=== PATIENT | male | born 1965 | race Caucasian/White ===

== ENCOUNTER 2021-01-24 09:29 | Day surgery (SDC) | payer BC ==
[2021-01-24] MEDS ORDERED: propofoL 200 MG/20 ML VIAL IV ONE ×3 (10:41→11:26)
[2021-01-24] MEDS ORDERED: LIDOCAINE 1% MPF 5 ML VIAL ONE (10:41)
--- NOTE | 2021-01-24 11:13 | ENDO RPT ---
[address], [address] EGD PROCEDURE REPORT EXAM DATE: 01/24/2021 PATIENT NAME: Epi Macias MR#: [id number] BIRTHDATE: 1965 ATTENDING: Joshua Carpenter DR STATUS: outpatient BAG PRESSER: Kellen Duvall and Shweta Hughes RN INDICATIONS: The patient is a 55 yr old Male here for an EGD due to GERD PROCEDURE PERFORMED: EGD with biopsy for H. pylori MEDICATIONS: Per Anesthesia. TOPICAL ANESTHETIC: none CONSENT: The patient understands the risks and benefits of the procedure and understands that these risks include, but are not limited to: sedation, allergic reaction, infection, perforation and/or bleeding. Alternative means of evaluation and treatment include, among others: physical exam, x-rays, and/or surgical intervention. The patient elects to proceed with this endoscopic procedure. DESCRIPTION OF PROCEDURE: During intra-op preparation period all mechanical medical equipment was checked for proper function. Hand hygiene and appropriate measures for infection prevention was taken. Procedure, possible complications, and alternatives including but not limited to the possibility of bleeding, perforation, tear, infection, sepsis, need for surgery, need for blood transfusion, and anesthesia related complications were explained to the patient. After the risks, benefits and alternatives of the procedure were thoroughly explained, Informed consent was verified, confirmed and timeout was successfully executed by the treatment team. The patient was placed in the left lateral position. The patient was anesthetized with topical anesthesia. Through the anesthetized oropharyngeal area, the scope was passed without any difficulty. The EG-[id number] ([id number]) endoscope was introduced through the mouth and advanced to the second portion of the duodenum. Retroflexed views revealed no abnormalities. The gastroscope was then slowly withdrawn and removed. Multiple erosions were found in the gastroesophageal junction. Located 39 cm from the point of entry. Multiple biopsies were obtained and sent to pathology. Mild gastritis was found at the pylorus. A biopsy for H. pylori was taken. Duodenitis was found in the bulb and descending duodenum. A biopsy for H. pylori was taken. Polyp was snared, then cauterized with monopolar cautery. Polyp was retrieved and sent to pathology. ADVERSE EVENTS: There were no complications. IMPRESSIONS: 1. Multiple erosions were found in the gastroesophageal junction 2. Mild gastritis was found at the pylorus 3. Duodenitis was found in the bulb and descending duodenum RECOMMENDATIONS: 1. acid suppression therapy 2. anti-reflux regimen 3. await biopsy results 4. avoid NSAIDS 5. follow-up: office 2 week(s) 6. follow-up of helicobacter pylori status, treat if indicated REPEAT EXAM: Jsohua Carpenter DR eSigned: Joshua Carpenter DR 01/24/2021 11:12 AM cc: CPT CODES: ICD9 CODES: PATIENT NAME: Epi Macias MR#: [id number]
--- NOTE | 2021-01-24 11:17 | ENDO RPT ---
[address], [address] COLONOSCOPY PROCEDURE REPORT EXAM DATE: 01/24/2021 PATIENT NAME: Epi Macias MR #: [id number] BIRTHDATE: 1965 ATTENDING: Joshua Carpenter DR STATUS: outpatient [employer] MANAGER: Shweta Hughes RN and Kellen Duvall INDICATIONS: The patient is a 55 yr old Male here for a colonoscopy due to colon cancer screening PROCEDURE PERFORMED: Colonoscopy with biopsy - cold polypectomy MEDICATIONS: Per Anesthesia. ESTIMATED BLOOD LOSS: None CONSENT: The patient understands the risks and benefits of the procedure and understands that these risks include, but are not limited to: sedation, allergic reaction, infection, perforation and/or bleeding. Alternative means of evaluation and treatment include, among others: physical exam, x-rays, and/or surgical intervention. The patient elects to proceed with this endoscopic procedure. DESCRIPTION OF PROCEDURE: During intra-op preparation period all mechanical medical equipment was checked for proper function. Hand hygiene and appropriate measures for infection prevention was taken. Procedure, possible complications, alternatives including, but not limited to possibility of bleeding, perforation, tear, infection, sepsis, need for surgery, need for blood transfusion, were explained to the patient. After the risks, benefits and alternatives of the procedure were thoroughly explained, Informed consent was verified, confirmed and timeout was successfully executed by the treatment team. The patient was placed in the left lateral position. A digital rectal exam was performed and revealed internal hemorrhoids. After appropriate level of anesthesia, the scope was passed. The [id number] ([id number]) endoscope was introduced through the anus and advanced to the cecum, which was identified by both the appendix and ileocecal valve. The quality of the prep was fair. The instrument was then slowly withdrawn as the colon was fully examined. Scope withdrawal time was 10 minutes. COLON FINDINGS: A few small smooth and polypoid shaped pedunculated polyps were found in the ascending colon and sigmoid colon. A polypectomy was performed with cold forceps. The resection was complete, the polyp tissue was completely retrieved and sent to histology. Mild diverticulosis was noted in the sigmoid colon. No bleeding was noted from the diverticulosis. Small internal hemorrhoids were found. Retroflexed views revealed no abnormalities. The scope was then completely withdrawn from the patient and the procedure terminated. ADVERSE EVENTS: There were no complications. IMPRESSIONS: 1. Few small pedunculated polyps were found in the ascending colon and sigmoid colon; polypectomy was performed with cold forceps 2. Mild diverticulosis was noted in the sigmoid colon 3. Small internal hemorrhoids RECOMMENDATIONS: 1. await biopsy results 2. avoid NSAIDS for 2 weeks 3. follow-up: office 2 week(s) 4. Monitor for any evidence of rectal bleeding. 5. hemorrhoidal hygiene 6. increase dietary water RECALL: for Colonoscopy, pending biopsy results. Joshua Carpenter DR eSigned: Joshua Carpenter DR 01/24/2021 11:16 AM cc: CPT CODES: ICD9 CODES: PATIENT NAME: Epi Macias MR#: [id number]
[2021-01-24] MEDS ORDERED: Ringers Lactate 1,000 ML IV ONE (11:27)
[2021-01-24 12:00] VITALS: BP 116/84; TEMP 97; O2SAT 98
== END 2021-01-24 11:50 | disposition home or self-care (01) ==
LOC: OR 09:29
PROVIDERS: ATTEND Surgery
PROC: 0DB98ZX Excision of Duodenum, Via Natural or Artificial Opening Endoscopic, Diagnostic (ICD-10-PCS; 2021-01-24)
PROC: 0DB68ZX Excision of Stomach, Via Natural or Artificial Opening Endoscopic, Diagnostic (ICD-10-PCS; 2021-01-24)
PROC: 0DB48ZX Excision of Esophagogastric Junction, Via Natural or Artificial Opening Endoscopic, Diagnostic (ICD-10-PCS; 2021-01-24)
PROC: 0DBK8ZX Excision of Ascending Colon, Via Natural or Artificial Opening Endoscopic, Diagnostic (ICD-10-PCS; principal; 2021-01-24 11:00)
PROC: 0DBN8ZX Excision of Sigmoid Colon, Via Natural or Artificial Opening Endoscopic, Diagnostic (ICD-10-PCS; 2021-01-24 11:00)
DX: R10.13 Epigastric pain (principal); K21.9 Gastro-esophageal reflux disease without esophagitis; Z12.11 Encounter for screening for malignant neoplasm of colon; K29.50 Unspecified chronic gastritis without bleeding; K21.00 Gastro-esophageal reflux disease with esophagitis, without bleeding; K64.8 Other hemorrhoids; K63.5 Polyp of colon; K57.30 Diverticulosis of large intestine without perforation or abscess without bleeding; K29.80 Duodenitis without bleeding; Z20.822 Contact with and (suspected) exposure to COVID-19
CPT/HCPCS: 88312; 88305; 45380; 43239; U0003; J2704 ×2; J7120